=== PATIENT | male | born 1990 | race Caucasian/White ===

== ENCOUNTER 2021-07-20 10:48 | Emergency (ER) | payer OTHER ==
[~2021-07-20] VITALS: Ht 175.3 cm; Wt 105.3 kg
[2021-07-20] MEDS ORDERED: HYDROmorphone PF 1 MG/ML DISP.SYRIN IM ONE (11:15)
--- NOTE | 2021-07-20 11:20 | PHYS DOC ---
General Adult EDM: Chief Complaint: BACK PAIN OR INJURY HPI: HPI: Patient is a 31-year-old male coming in for low back pain radiating to his right hip. Patient was doing lifts and about nursing home back up when he felt a pop. Patient denies any numbness tingling, bowel or bladder dysfunction. Patient denies any numbness. Is able to ambulate. Took 2 Diane aspirin prior to arrival. Patient has a history of back pain, last imaging done about 3 years ago. Patient states he normally has a little bit of pain but has been managing it. Review of Systems: Review of Systems: All other systems within normal limits except for as noted in the HPI Allergies: Allergies: Allergies Coded Allergies Type Severity Reaction Last Updated Verified No Known Drug Allergies 07/20/21 No Physical Exam: PE: Constitutional: Well developed, well nourished, no acute distress, non-toxic appearance. [] HENT: Normocephalic, atraumatic, bilateral external ears normal, nose normal. [] Eyes: PERRLA, conjunctiva normal, no discharge. [] Neck: No rigidity, supple, no stridor. [] Cardiovascular: Regular rate and rhythm, brisk cap refill [] Lungs & Thorax: Non labored symmetric respirations, no tachypnea or respiratory distress [] Abdomen: Soft, nondistended. Skin: Warm, dry, no erythema, no rash. [] Back: No step-off or deformity, point tenderness from L3. Tenderness to right lumbar back. Extremities: No deformities, range of motion grossly intact, no lower extremity edema [] Neurologic: Alert and oriented X 3, no focal deficits noted, no sensory deficit. [] Psychologic: Affect normal, judgement normal, mood normal. [] EKG: EKG: [] Radiology/Procedures: Radiology/Procedures: [address] [address] IMAGING REPORT Signed PATIENT: ANGELINA JOSE: [id number] : 1990 LOCATION: ER AGE: 31 SEX: M EXAM STATUS: REG ER ORD. PHYSICIAN: CHARLOTTE RAO MD REASON: injury, point tender around L3 PROCEDURE: CT LUMBAR SPINE WO CONTRAST Study: CT lumbar spine without contrast INDICATION: Injury. Point tenderness at approximately L3. COMPARISON: None. TECHNIQUE: Axial CT imaging of the lumbar spine performed without the use of intravenous contrast. One or more of the following individualized dose reduction techniques were utilized for this examination: 1. Automated exposure control 2. Adjustment of the mA and/or kV according to patient size 3. Use of iterative reconstruction technique. FINDINGS: No acute fracture. No focally aggressive osseous abnormality. No listhesis or facet malalignment. Moderate loss of disc space height at L5-S1 and background mild discogenic arthrosis with endplate osteophytic ridging. Minimal disc space height loss at L3-L4. No advanced facet arthrosis. The visualized pelvis is intact. Unremarkable SI joints. No evidence for significant central canal stenosis. Minimal left more so than right neural foraminal narrowing at L5-S1. Unremarkable paraspinous soft tissues. Small left renal cystic focus measuring simple density. IMPRESSION: 1. No acute fracture or traumatic malalignment. 2. 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 No evidence for significant central canal stenosis. Minimal left more so than right neural foraminal narrowing at L5-S1. Electronically signed by: DEEPAK LANG MD (07/20/2021 12:02 PM) [id number] DICTATED AND SIGNED BY: DEEPAK LANG MD DATE: 07/20/21 1158 CC: CHARLOTTE RAO MD; PCP,UNKNOWN ~ [] Heart Score: C/O Chest Pain: No Risk Factors: Risk Factors: DM, Current or recent (<one month) smoker, HTN, HLP, family history of CAD, obesity. Risk Scores: Score 0 - 3: 2.5% MACE over next 6 weeks - Discharge Home Score 4 - 6: 20.3% MACE over next 6 weeks - Admit for Clinical Observation Score 7 - 10: 72.7% MACE over next 6 weeks - Early Invasive Strategies Course & Med Decision Making: Course & Med Decision Making Pertinent Labs and Imaging studies reviewed. (See chart for details) [] Cas Disclaimer: Cas Disclaimer: This electronic medical record was generated, in whole or in part, using a voice recognition dictation system. Departure Departure: Impression: Primary Impression: Right low back pain Disposition: HOME / SELF CARE / HOMELESS Condition: STABLE Referrals: [facility] Patient Instructions: Low Back Sprain with Rehab[facility] Cyclobenzaprine Hcl (CYCLOBENZAPRINE HCL) 10 Mg Tablet 1 TAB PO TID PRN for MUSCLE SPASMS for 5 Days, #15 TAB Prov: CHARLOTTE RAO MD 07/20/21 Meloxicam (MELOXICAM) 15 Mg Tablet 1 TAB PO DAILY PRN for PAIN for 30 Days, #30 TAB 0 Refills Prov: CHARLOTTE RAO MD 07/20/21 CHARLOTTE RAO MD Jul 20, 2021 11:20
--- NOTE | 2021-07-20 12:04 | RAD ---
Study: CT lumbar spine without contrast INDICATION: Injury. Point tenderness at approximately L3. COMPARISON: None. TECHNIQUE: Axial CT imaging of the lumbar spine performed without the use of intravenous contrast. One or more of the following individualized dose reduction techniques were utilized for this examinat ion: 1. Automated exposure control 2. Adjustment of the mA and/or kV according to patient size 3. Use of iterative reconstruction technique. FINDINGS: No acute fracture. No focally aggressive osseous abnormality. No listhesis or facet malalignment. Moderate loss of disc space height at L5-S1 and background mild discogenic arthrosis with endplate os teophytic ridging. Minimal disc space height loss at L3-L4. No advanced facet arthrosis. The visualiz ed pelvis is intact. Unremarkable SI joints. No evidence for significant central canal stenosis. Minimal left more so than right neural foraminal narrowing at L5-S1. Unremarkable paraspinous soft tissues. Small left renal cystic focus measuring simple density. IMPRESSION: 1. No acute fracture or traumatic malalignment. 2. 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 No evidence for sign ificant central canal stenosis. Minimal left more so than right neural foraminal narrowing at L5-S1. Electronically signed by: DEEPAK LANG MD (07/20/2021 12:02 PM) [id number]
[2021-07-20 12:40] VITALS: BP 110/70
[2021-07-20] MEDS ORDERED: CYCL10TA19 PO (12:41)
[2021-07-20] MEDS ORDERED: MELO15TA23 PO (12:41)
== END 2021-07-20 12:50 | disposition home or self-care (01) ==
LOC: ER 10:48
DX: M54.59 Other low back pain (principal)
CPT/HCPCS: 72131; 96372; 99284; J1170